=== PATIENT | female | born 1975 | race Caucasian/White ===

== ENCOUNTER 2023-11-18 21:47 | Emergency (ER) | payer BC | END 2023-11-18 22:44 | disposition home or self-care (01) | LOC: JD.ED 21:47 | DX: T81.31XD Disruption of external operation (surgical) wound, not elsewhere classified, subsequent encounter (principal); I10 Essential (primary) hypertension; Z88.0 Allergy status to penicillin; Z79.899 Other long term (current) drug therapy; Y79.8 Miscellaneous orthopedic devices associated with adverse incidents, not elsewhere classified | CPT/HCPCS: 99283 ==